=== PATIENT | male | born 1995 | race Caucasian/White ===

== ENCOUNTER 2017-09-27 11:26 | Emergency (ER) | payer OTHER ==
[~2017-09-27] VITALS: Ht 177.8 cm; Wt 74.8 kg
[2017-09-27 12:42] LABS: ABSOLUTE BASOPHIL COUNT 0 /CUMM (0.0-0.2); ABSOLUTE EOSINOPHIL COUNT 0.3 /CUMM (0.0-0.7); ABSOLUTE GRANULOCYTE CT 4.1 /CUMM (1.4-6.5); ABSOLUTE LYMPH COUNT 1.3 /CUMM (1.2-3.4); ABSOLUTE MONOCYTE COUNT 0.7 /CUMM (0.10-0.60); BASOPHIL % 0.4 % (0.0-2.0); EOSINOPHIL % 4.1 % (0-5); GRANULOCYTE % 65.2 % (42.2-75.2); HEMATOCRIT 44.8 % (42-52); MEAN CORPUSCULAR HGB 32.7 PG (27.0-31.0); MEAN CORPUSCULAR HGB CONC 34.4 G/DL (33.0-37.0); MEAN PLATELET VOLUME 8.2 FL (7.4-10.4); PLATELET COUNT 265 /CUMM (130-400); RED BLOOD CELL CT 4.71 /CUMM (4.70-6.10); WHITE BLOOD CELL COUNT 6.3 /CUMM (4.8-10.8)
--- NOTE | 2017-09-27 12:50 | ED GI/GU/ABDOMINAL COMPLAINT ---
History of Present Illness General Chief Complaint: Abdominal Pain/Flank Pain Stated Complaint: ABD PAIN Source: patient, family Exam Limitations: no limitations Vital Signs & Intake/Output Vital Signs & Intake/Output Vital Signs Date Time Temp Pulse Resp B/P B/P Pulse O2 O2 Flow FiO2 Mean Ox Delivery Rate 09/27 1358 58 20 138/77 99 Room Air 09/27 1130 97.4 86 20 165/112 99 Room Air Allergies Coded Allergies: NO KNOWN ALLERGIES (10/13/12) Reconcile Medications No Known Home Medications Triage Note: PT TO ED C/O LOWER ABD, GROIN PAIN X 5 DAYS. DENIES S/S. DENIES N/V/D. STATES WHEN HE LAYS DOWN HE FEELS A "STRAIN" TO GROIN AREA. PAIN IS MOSTLY LLQ. Triage Nurses Notes Reviewed? yes HPI: Patient presents with lower quadrant abdominal pain. Patient states the pain started in the right lower quadrant for 5 days ago after working on the gym. The pain radiated down into his inner thigh. Since then the pain has migrated over to the left lower quadrant. He states that there is no longer any pain in the left than the right lower quadrant and that it is only the left lower quadrant. Pain is constant and increases with movement. The pain in the left lower quadrant also radiates to his left inner thigh. He rates the pain at 4 out of 10. There is no nausea or vomiting. There is no constipation or diarrhea. There is no dysuria or hematuria. There is no penile discharge. Past History Travel History Traveled to [place] past 21 day No Medical History Any Pertinent Medical History? none Surgical History Surgical History: none Psychosocial History Who do you live with Mother Services at Home None What is your primary language Brazilian Tobacco Use: Never used ETOH Use: occasional use Illicit Drug Use: marijuana Family History Hx Contributory? No Review of Systems Review of Systems Constitutional: Reports: no symptoms. EENTM: Reports: no symptoms. Respiratory: Reports: no symptoms. Cardiovascular: Reports: no symptoms. GI: Reports: see HPI, abdominal pain. Genitourinary: Reports: no symptoms. Musculoskeletal: Reports: no symptoms. Skin: Reports: no symptoms. Neurological/Psychological: Reports: no symptoms. Hematologic/Endocrine: Reports: no symptoms. Immunologic/Allergic: Reports: no symptoms. All Other Systems: Reviewed and Negative Physical Exam Physical Exam General Appearance: well developed/nourished, alert, awake, mild distress Head: atraumatic, normal appearance Eyes: Bilateral: PERRL, EOMI. Ears, Nose, Throat, Mouth: hearing grossly normal, moist mucous membrane Neck: normal inspection, supple, full range of motion Respiratory: normal breath sounds, chest non-tender, no respiratory distress, lungs clear Cardiovascular: regular rate/rhythm, normal peripheral pulses Gastrointestinal: normal bowel sounds, soft, non-tender, no organomegaly Male Genitals: normal genitalia, normal cremaster reflex Back: normal inspection, normal range of motion Extremities: normal range of motion Neurologic/Psych: no motor/sensory deficits, awake, alert, oriented x 3, normal gait, normal mood/affect Core Measures ACS in differential dx? No Sepsis Present: No Sepsis Focused Exam Completed? No Progress Differential Diagnosis: appendicitis, diverticulitis, ischemic bowel, inflamm bowel dis, urethritis, UTI/pyelo Plan of Care: Orders Procedure Date/time Status URINALYSIS 09/27 1133 Complete LIPASE 09/27 1133 Complete C-REACTIVE PROTEIN 09/27 1133 Complete COMPREHENSIVE METABOLIC PANEL 09/27 1133 Complete CBC WITHOUT DIFFERENTIAL 09/27 1133 Complete Laboratory Tests 09/27/17 1225: Anion Gap 7, Estimated GFR > 60, BUN/Creatinine Ratio 15.0, Glucose 94, Calcium 10.0, Total Bilirubin 0.5, AST 26, ALT 41, Alkaline Phosphatase 72, C-Reactive Prot, Quant < 0.5, Total Protein 7.3, Albumin 4.4, Globulin 2.9, Albumin/ Globulin Ratio 1.5, Lipase 23, CBC w Diff NO MAN DIFF REQ, RBC 4.71, MCV 95.0 H , MCH 32.7 H, MCHC 34.4, RDW 13.0, MPV 8.2, Gran % 65.2, Lymphocytes % 19.9 L, Monocytes % 10.4 H, Eosinophils % 4.1, Basophils % 0.4, Absolute Granulocytes 4.1, Absolute Lymphocytes 1.3, Absolute Monocytes 0.7 H, Absolute Eosinophils 0.3, Absolute Basophils 0, Urine Color YEL, Urine Clarity CLEAR, Urine pH 6.0, Ur Specific [place] 1.025, Urine Protein NEG, Urine Ketones NEG, Urine Nitrite NEG, Urine Bilirubin NEG, Urine Urobilinogen 0.2, Ur Leukocyte Esterase NEG, Ur Microscopic EXAM NOT REQUIRED, Urine Hemoglobin NEG, Urine Glucose NEG Diagnostic Imaging: Viewed by Me: CT Scan. Discussed w/RAD: CT Scan. Radiology Impression: PATIENT: KAITLIN PARIS PRESENT AGE: 22 PATIENT ACCOUNT NO: [id number] : 94 LOCATION: [facility] ORDERING PHYSICIAN: Jared Renteria MD SERVICE DATE: 09/27/177802 EXAM TYPE: CAT - CT ABD & PELVIS W IV CONTRAST EXAMINATION: CT ABDOMEN AND PELVIS WITH CONTRAST CLINICAL INFORMATION: Right lower quadrant, left lower quadrant pain. Presumptive diagnosis of hernia, appendicitis. COMPARISON: CT scan of the abdomen and pelvis dated 06/08/2011 and 10/18/2008. TECHNIQUE: Multidetector CT volumetric acquisition of the abdomen and pelvis was performed after the administration of 95 mL of intravenous Optiray 320. The data set was reformatted in the sagittal and coronal planes and reviewed on an independent workstation. DLP: 312.24 mGy-cm. FINDINGS: LOWER CHEST: Included lung bases unremarkable. LIVER, GALLBLADDER, BILIARY TREE: Liver normal size and attenuation. No focal cystic or solid mass or intra-or extrahepatic ductal dilatation. Hepatic and portal veins patent. Gallbladder partially distended and within normal limits. PANCREAS: Normal. No ductal dilatation, mass, or surrounding stranding. SPLEEN: Normal size and appearance. There is a small accessory splenule along the anterior margin of the spleen. Splenic vein patent. ADRENAL GLANDS AND KIDNEYS: Adrenal glands normal. Kidneys bilaterally symmetric in size and function. No focal mass, hydronephrosis, nephrolithiasis or perinephric stranding. URETERS AND BLADDER: Ureters decompressed and within normal limits. Bladder under distended, likely accounting for the diffusely thick-walled appearance. Bladder otherwise grossly unremarkable. PELVIC ORGANS: Unremarkable. GASTROINTESTINAL TRACT: The patient is status post appendectomy with postsurgical suture material seen in the fat at the cecal base region. There is mild distention of the terminal ileum with fecalization of the intestinal contents, implying stasis. No abnormal terminal ileal bowel wall thickening or surrounding inflammatory change or mucosal enhancement is seen. Small and large bowel loops remain decompressed and are otherwise unremarkable. ABDOMINAL WALL: Unremarkable. No hernia is seen. LYMPHOVASCULAR STRUCTURES: Abdominal aorta normal in caliber. No periaortic collections. No abdominal or pelvic adenopathy or free fluid collection. BONES: Within normal limits. IMPRESSION: 1. The patient is status post appendectomy and no focal right lower quadrant inflammatory process is seen in the postoperative bed. 2. No evidence of abdominal wall or inguinal hernia. 3. Nonspecific mild distention of the terminal ileum with sacralization of the intestinal contents. This is a nonspecific finding but is suggestive of stasis of intestinal contents with delayed or slowed emptying. Close clinical correlation is requested. DICTATED BY: Elisa Lawton MD DATE/TIME DICTATED:09/27/171410 MAT ROLLER:GURVINDER DATE/TIME TRANSCRIBED:09/27/171410 CONFIDENTIAL, DO NOT COPY WITHOUT APPROPRIATE AUTHORIZATION. <Electronically signed in Other Vendor System> SIGNED BY: Elisa Lawton MD 09/27/17 1430 Initial ED EKG: none Departure Departure Disposition: HOME OR SELF CARE Condition: Stable Clinical Impression Primary Impression: Abdominal wall strain Referrals: Unknown (PCP/Family) Additional Instructions: Return if symptoms worsen or for any concerns. Departure Forms: Customer Survey General Discharge Information Prescriptions: Current Visit Scripts No Known Home Medications
[2017-09-27 13:58] VITALS: BP 138/77
--- NOTE | 2017-09-27 14:30 | CT SCAN REPORT ---
EXAMINATION: CT ABDOMEN AND PELVIS WITH CONTRAST CLINICAL INFORMATION: Right lower quadrant, left lower quadrant pain. Presumptive diagnosis of hernia, appendicitis. COMPARISON: CT scan of the abdomen and pelvis dated 06/08/2011 and 10/18/2008. TECHNIQUE: Multidetector CT volumetric acquisition of the abdomen and pelvis was performed after the administration of 95 mL of intravenous Optiray 320. The data set was reformatted in the sagittal and coronal planes and reviewed on an independent workstation. DLP: 312.24 mGy-cm. FINDINGS: LOWER CHEST: Included lung bases unremarkable. LIVER, GALLBLADDER, BILIARY TREE: Liver normal size and attenuation. No focal cystic or solid mass or intra-or extrahepatic ductal dilatation. Hepatic and portal veins patent. Gallbladder partially distended and within normal limits. PANCREAS: Normal. No ductal dilatation, mass, or surrounding stranding. SPLEEN: Normal size and appearance. There is a small accessory splenule along the anterior margin of the spleen. Splenic vein patent. ADRENAL GLANDS AND KIDNEYS: Adrenal glands normal. Kidneys bilaterally symmetric in size and function. No focal mass, hydronephrosis, nephrolithiasis or perinephric stranding. URETERS AND BLADDER: Ureters decompressed and within normal limits. Bladder under distended, likely accounting for the diffusely thick-walled appearance. Bladder otherwise grossly unremarkable. PELVIC ORGANS: Unremarkable. GASTROINTESTINAL TRACT: The patient is status post appendectomy with postsurgical suture material seen in the fat at the cecal base region. There is mild distention of the terminal ileum with fecalization of the intestinal contents, implying stasis. No abnormal terminal ileal bowel wall thickening or surrounding inflammatory change or mucosal enhancement is seen. Small and large bowel loops remain decompressed and are otherwise unremarkable. ABDOMINAL WALL: Unremarkable. No hernia is seen. LYMPHOVASCULAR STRUCTURES: Abdominal aorta normal in caliber. No periaortic collections. No abdominal or pelvic adenopathy or free fluid collection. BONES: Within normal limits. IMPRESSION: 1. The patient is status post appendectomy and no focal right lower quadrant inflammatory process is seen in the postoperative bed. 2. No evidence of abdominal wall or inguinal hernia. 3. Nonspecific mild distention of the terminal ileum with sacralization of the intestinal contents. This is a nonspecific finding but is suggestive of stasis of intestinal contents with delayed or slowed emptying. Close clinical correlation is requested.
== END 2017-09-27 14:54 ==
LOC: ERH 11:26
PROVIDERS: Physician Assistant Medical
DX: S39.011A Strain of muscle, fascia and tendon of abdomen, initial encounter (principal); X58.XXXA Exposure to other specified factors, initial encounter; Y92.39 Other specified sports and athletic area as the place of occurrence of the external cause; Y93.B9 Activity, other involving muscle strengthening exercises
CPT/HCPCS: 74177; 81003